=== PATIENT | female | born 1990 | race Caucasian/White ===

== ENCOUNTER 2020-02-18 06:40 | Inpatient (IN) ==
--- NOTE | 2020-02-18 17:20 | History & Physical Report ---
Date of Service February 18, 2020 Assessment & Plan (1) Post term over 40 weeks: (2) Unfavorable cervix in term : (3) Encounter for elective induction of labor: admit, iv, labs. pt aware this is her choice and desires to proceed. will add pitocin. fhts categ 1. counseled about use of cx dilator and agrees. Admission and Anticipated Discharge Date Admission Date: February 18, 2020 History of Present Illness Chief Complaint: planned elective induction Primary Care Provider: NO PCP 30yo at 40+wks shagufta presents to L&D with above cc. She asked for elective induction. No rom, no vb. +FM. No ctx. Aware this is her choice and she desires to proceed. PNC uncomplicated PNL rh pos, ri, gbs neg OBH: g1 GYNH: nl pap, no stds Allergies Allergy/AdvReac Type Severity Reaction Status Date / Time No Known Allergies Verified 02/18/20 16:48 Home Medications Home Medications Medication Instructions Recorded Confirmed Type prenat.vits,willow,[id number]-[id number] 1 tab PO DAILY 08/05/19 02/18/20 History Patient History Social History Smoking Status: Never smoker Hx Alcohol Use: No Hx Substance Use: No Preferred Language: Citizen Of [place] Drum Attendant Required: No Beliefs That Will Affect Care: None marital status: marital status details: Gurwinder Sosa (37) [phone] Current Living Situation: Spouse Current Living Situation Comment: lives with spouse, dog, cat-spouse changing litter current occupational status: employed current occupation: [employer] Other Information That Helps Us Care for You: No Feels Safe at Home: Yes Safety Concerns: Feels Safe At This Time Review of Systems per hpi Physical Exam Constitutional: WD/WN, vitals as above Neurologic: grossly normal Psychiatric: A+Ox3, euthymic affect Genitourinary: OB Exam Abdomen: + vertex and + estimated weight (7-8#) Manual OB Exam: + cervical dilation fingertip, + cervical effacement 50% and + station -2 OB Exam Monitor Tracing: + external FHT monitor used (130 mod variability), + external uterine monitor used (q7 with irrit), + category I and + normal FHT variability Procedure: spec placed, cx grasped on post lip and dejesus placed through os. balloon inflated 40cc saline. instruments removed, spec removed. dejesus taped to thigh. pt baron well. Results & Data ([facility]) Vital Signs (Past 12 Hours) Vital Signs Temp Pulse Resp BP 02/18/20 16:41 71 120/72 02/18/20 16:40 98.2 F 16 Coding Level of Care Code None Diagnoses Post term over 40 weeks O48.0 Unfavorable cervix in term O34.40 Encounter for elective induction of labor Z34.90 CPT Codes Misx Procedure Codes - 47019 Placement of cervical dilator: 15410 Placement of cervical dilator ([id number])
[2020-02-18] MEDS ORDERED: OXYTOCIN 30 UNITS/500 ML BAG IV PRN ×2 (17:27)
[2020-02-18] MEDS: LACTATED RINGER'S 1,000 ML IV PRN ×2 (17:48→22:46)
[2020-02-18 17:58] LABS: Hematocrit (blood only) 33.4 % (37-47); Hemoglobin 11.3 g/dL (12.0-16.0); Mean Corpuscular Hemoglobin 31.2 pg (25-34); Mean Corpuscular Volume 92.3 fL (80-100); Mean Platelet Volume 10.7 fL (7.4-10.4); Platelet Count 281 K/uL (130-400); RDW Standard Deviation 46.3 fL (36.4-46.3); Red Blood Count 3.62 M/uL (4.2-5.4); White Blood Count 12.64 K/uL (4.8-10.8)
[2020-02-18 18:11] LABS: Mean Corpuscular Hgb Conc 33.8 g/dL (32-36)
--- NOTE | 2020-02-18 22:18 | Labor Progress Brief Note ---
Date of Service February 18, 2020 Subjective Reason For Note: Routine Evaluation pt noting some increased pain with ctx. Assessment & Plan (1) Post term over 40 weeks: (2) Encounter for elective induction of labor: cx dejesus was in vagina and removed. arom done. will see how that helps labor pattern. fhts categ 1 Admission and Anticipated Discharge Date Admission Date: February 18, 2020 Physical Exam Constitutional: WD/WN, vitals as above Genitourinary: Manual OB Exam: + cervical dilation 4 cm, + cervical effacement 50%, + station -2 and + amniotic fluid (AROM) clear OB Exam Monitor Tracing: + external FHT monitor used (130 mod variability), + external uterine monitor used (q2, pit at 13), + category I and + normal FHT variability Results & Data ([facility]) Vital Signs (Past 12 Hours) Vital Signs Temp Pulse Resp BP 02/18/20 22:10 98.2 F 18 02/18/20 21:51 70 117/71 02/18/20 20:52 70 99/67 L 02/18/20 19:51 70 121/69 02/18/20 19:11 98.2 F 18 02/18/20 19:03 74 115/75 02/18/20 18:51 68 113/74 02/18/20 17:51 80 122/67 02/18/20 16:45 98.2 F 71 120/72 02/18/20 16:41 71 120/72 02/18/20 16:40 98.2 F 16 Coding Level of Care Code None Diagnoses Post term over 40 weeks O48.0 Encounter for elective induction of labor Z34.90
[2020-02-18] MEDS ORDERED: ePHEDrine sulfate 50 MG/ML AMP ONE (22:24)
[2020-02-18] MEDS ORDERED: BUPIVACAINE 0.25% 30 ML VIAL ONE (22:24)
[2020-02-18] MEDS ORDERED: fentaNYL 2MCG/ML ROPIV 1.25MG/ML 100 ML BAG EPI ONE (22:25)
[2020-02-18] MEDS ORDERED: fentaNYL citrate 100 MCG/2 ML VIAL ONE (22:25)
[2020-02-18] MEDS ORDERED: fentaNYL 2MCG/ML ROPIV 1.25MG/ML 100 ML BAG EPI PRN (22:56)
[2020-02-18] MEDS ORDERED: NALOXONE HCL 0.4 MG/1 ML VIAL/CARP IV PRN (22:56)
[2020-02-18] MEDS ORDERED: NALOXONE HCL 1 MG in SODIUM CHLORIDE 0.9% 1000ML 1,000 ML IV PRN (22:56)
[2020-02-18] MEDS ORDERED: ePHEDrine sulfate 50 MG/ML AMP IV PRN (22:56)
[2020-02-18] MEDS ORDERED: DiphenhydrAMINE HCL 50 MG/ML VIAL IV PRN (22:56)
[2020-02-18] MEDS ORDERED: ONDANSETRON INJ 2 MG/ML 2 ML VIAL IV PRN (22:56)
--- NOTE | 2020-02-18 22:58 | Anesthesiology Consultation ---
Date of Service February 18, 2020 Covid 19 negative on 02/09/20. Assessment & Plan Chart Review Chart Review: Patient NOT seen in Pre Admission Testing and Acceptable Risk for Labor Epidural Consults Requested none ASA ASA2 Proposed Anesthesia Anesthesia Type: Labor Epidural and CSE Risk / Benefits Reviewed With: PT / POA / Parent / Guardian, Accepts Plan and Informed Consent Obtained History Height/Weight Height: 5 ft 2 in Weight: 73.936 kg Allergies Allergy/AdvReac Type Severity Reaction Status Date / Time No Known Allergies Verified 02/18/20 16:48 Medications Home Medications Medication Instructions Recorded Confirmed Last Taken prenat.vits,willow,ocb-[id number]-brqng 1 tab PO DAILY 08/05/19 02/18/20 02/17/20 21:00 Active Medications Generic Name Dose Route Start Last Admin Trade Name Freq PRN Reason Stop Dose Admin Lactated Ringer's 1,000 mls @ 125 mls/hr 02/18/20 17:27 02/18/20 22:46 Lr IV 02/20/20 17:26 125 mls/hr .Q8H PRN Administration L&D Protocol Protocol Oxytocin 30 units in 500 mls @ 13 mls/hr 02/18/20 17:27 02/18/20 21:51 Pitocin IV 02/20/20 17:26 0.78 units/hr .Q24H PRN 13 mls/hr Labor Induction/Augmentation Titration Protocol 0.78 UNITS/HR NPO Date Last Intake of Fluids: 02/18/20 Time Last Intake of Fluids: 22:00 Date Last Intake of Solids: 02/18/20 Time Last Intake of Solids: 22:00 Past Medical History Medical History History of chicken pox Scarring, hypertrophic Shingles Exercise / Class Metabolic Activity II 4-5 Yardwork/Stairs/Walk up hill Past Family History Family History Grandfather (Maternal) Diabetes Heart disease Multiple myeloma Father Hypertension Sister HELLP syndrome Past Surgical History Surgical History S/P wisdom tooth extraction Past Anesthesia History No Hx of Anesthesia Complications and No Family Hx of Anesthesia Complications History of PONV No Hx of PONV and No Hx of Motion Sickness Social History Smoking Status: Never smoker Hx Alcohol Use: No Hx Substance Use: No substance use type: does not use Review of Systems no chest pain or sob Physical Exam Vital Signs Last Vital Signs Temp 36.8 C 02/18/20 22:10 Pulse 88 02/18/20 23:01 Resp 18 02/18/20 22:10 BP 121/69 02/18/20 22:56 Pulse Ox 97 02/18/20 23:01 ENMT Mouth: no TMJ abnormality Thyromental Distance: > or= 3.5 Finger Breadths Mallampati Class: II Neck normal visual inspection Respiratory normal respiratory effort Auscultation: lungs clear to auscultation bilaterally Cardiovascular Rate/Rhythm: regular rate and regular rhythm Musculoskeletal Spine: normal cervical ROM Neurologic moves all extremities Psychiatric Orientation: alert and oriented x 3 Testing Laboratory Results 02/18/20 17:43
[2020-02-19] MEDS: LACTATED RINGER'S 1,000 ML IV PRN (05:53)
[2020-02-19] MEDS ORDERED: OXYCODONE/ACETAMINOPHEN 5mg/325mg TAB PO PRN (06:58)
[2020-02-19] MEDS ORDERED: ACETAMINOPHEN 325 MG TAB PO PRN (06:58)
[2020-02-19] MEDS ORDERED: OXYTOCIN 20 UNITS in LACTATED RINGER'S 1,000 ML IV SCH (07:00)
--- NOTE | 2020-02-19 07:00 | Delivery Summary ---
Vaginal Delivery Summary Date of Service February 19, 2020 The patient dilated to complete and pushed to deliver a viable female infant Apgars 9 and 9 via over 2nd degree perineal laceration. Mouth and nose bulb suctioned at perineum. Shoulders and body delivered with ease. Infant was vigorous and crying at . Cord clamped at 30 seconds of life and to maternal abdomen where the cord was then doubly clamped and cut. Laceration repaired in routine fashion with 3-0 vicryl. Placenta delivered spontaneously and intact, three-vessel cord. Hemostasis achieved with dilute pitocin and uterine massage. Cervix and sulci intact. EBL 300 cc. Mother and baby stable recovery. [facility] [place] Delivery Charge Vaginal Delivery Codes: 17174 global code for the antepartum, delivery, and post-
[2020-02-19] MEDS ORDERED: HYDROCORTISONE ACETATE 25 MG SUPP PR PRN (07:07)
[2020-02-19] MEDS ORDERED: DIPHTHERIA/TETANUS/PERTUSSIS 0.5 ML SYR/VIAL IM ONE (07:07)
[2020-02-19] MEDS ORDERED: BENZOCAINE 20% AER SPR 82.5 GM CAN EXT PRN (07:07)
[2020-02-19] MEDS ORDERED: OXYTOCIN 30 UNITS/500 ML BAG IV PRN (07:07)
[2020-02-19] MEDS ORDERED: SUPERCREAM 0.870% 15 GM JAR EXT PRN (07:07)
--- NOTE | 2020-02-19 07:45 | Anesthesia Procedure Note ---
Date of Service February 19, 2020 Anesthesia Post Epidural Note Vital Signs Vital Signs: Temp Pulse Resp BP Pulse Ox 37.0 C 77 18 121/55 L 99 02/19/20 06:27 02/19/20 07:40 02/19/20 06:27 02/19/20 07:40 02/19/20 06:54 Notes Mental Status: alert / awake / arousable Nausea / Vomiting: adequately controlled Pain: adequately controlled Airway Patency, RR, SpO2: stable & adequate BP & HR: stable & adequate Hydration State: stable & adequate Neuraxial Anesthesia: was administered and sensory block is resolving Anesthetic Complications: no major complications apparent and Pt Satisfied with anesthetic care Epidural: Removed without complications and With tip intact
[2020-02-19] MEDS: IBUPROFEN 600 MG TAB PO PRN ×2 (15:06→21:40)
[2020-02-19] MEDS: DOCUSATE SODIUM 100 MG CAP PO SCH (21:40)
[2020-02-20 04:19] VITALS: BP 109/72
--- NOTE | 2020-02-20 07:39 | Obstetrical Progress Note ---
Date of Service February 20, 2020 Assessment & Plan (1) Encounter for care and examination after delivery: satisfactory progress D/C to home follow up in 6 weeks Subjective Ambulation: ambulating normally Voiding: no voiding problems Diet Tolerance:: regular diet Lochia:: Small Feeding Type:: bottle feeding Review of Systems All systems reviewed & are unremarkable except as noted in HPI & below Physical Exam Constitutional WD/WN, vitals as above Psychiatric A+Ox3, euthymic affect Genitourinary OB Exam Abdomen: + fundal height Fundus: + firm and + relation to umbilicus (at U) Results & Data ([facility]) Vital Signs (Past 12 Hours) Vital Signs Temp Pulse Resp BP Pulse Ox 02/20/20 04:50 97.7 F 70 15 109/72 100 02/20/20 00:00 97.7 F 88 16 109/72 97 02/19/20 20:25 97.7 F 79 18 105/67
[2020-02-20] MEDS: IBUPROFEN 600 MG TAB PO PRN (08:46)
[2020-02-20] MEDS: DOCUSATE SODIUM 100 MG CAP PO SCH (08:46)
[2020-02-20 09:04] VITALS: PULSE 80; TEMP 97.9; O2SAT 99
== END 2020-02-20 11:53 | disposition home or self-care (01) | DRG 807 ==
LOC: 4S1 16:30 → 4N 02-19 11:45